=== PATIENT | male | born 1945 | race Caucasian/White ===

== ENCOUNTER → 2017-10-09 | Outpatient (CLI) | payer OTHER ==
--- NOTE | 2017-10-09 10:46 | DIAGNOSTIC IMAGING REPORT ---
L KNEE 4 OR MORE CLINICAL HISTORY: LEFT KNEE PAIN pain COMPARISON: None. DISCUSSION: Severe degenerative change all major joint compartments. This includes considerable degenerative and osteophytic change of all major compartments including patellofemoral joint. Potential underlying chondrocalcinosis. Less prominent degenerative change right knee. IMPRESSION: Severe degenerative change left knee all major compartments. The above report was generated using voice recognition software. It may contain grammatical, syntax or spelling errors. Electronically signed by: Nazario Jean M.D. 10/09/2017 10:45 AM Dictated Date/Time: 10/09/2017 10:44 AM
== END | disposition home or self-care (01) ==
LOC: C.RDSM 16:40
PROVIDERS: ATTEND Physician Assistant
DX: M25.562 Pain in left knee (principal); M89.8X6 Other specified disorders of bone, lower leg

== ENCOUNTER 2018-02-10 08:06 | Inpatient (IN) | payer OTHER ==
[2018-01-18 09:49] VITALS: Ht 182.9 cm; Wt 140.6 kg
--- NOTE | 2018-01-18 10:38 | PAT Medication Instructions ---
Service Date Jan 18, 2018. Current Home Medication List Aspirin (Aspirin), 1 TAB PO QPM Cholecalciferol (Vitamin D3), 1 CAP PO QPM Clonidine Hcl (Catapres), 0.6 MG PO QAM Clonidine Hcl (Catapres), 0.3 MG PO QPM Diltiazem Hcl Ext Rel (Tiazac), 360 MG PO QAM Doxazosin Mesylate (Cardura), 4 MG PO QPM Hydrocodone/Acetaminophen 7.5MG/325MG ([place] 7.5MG/325MG), 2 TABS PO QPM PRN for Pain Multivitamin (Multivitamin), 1 TAB PO QAM Oxymetazoline Hcl (Afrin), 1-2 SPRAYS INTNAS PRN Simvastatin (Zocor), 10 MG PO QPM [Lisinopril/Hctz], 2 TAB PO QAM Medication Instructions For Your Scheduled Surgery - Contact your surgeon for instructions for: Aspirin (Aspirin), 1 TAB PO QPM - Hold the following medications the morning of surgery: Multivitamin (Multivitamin), 1 TAB PO QAM [Lisinopril/Hctz], 2 TAB PO QAM - Take the following medications the morning of surgery with a sip of water: Clonidine Hcl (Catapres), 0.6 MG PO QAM Diltiazem Hcl Ext Rel (Tiazac), 360 MG PO QAM Hydrocodone/Acetaminophen 7.5MG/325MG ([place] 7.5MG/325MG), 2 TABS PO QPM PRN for Pain (if needed, cane be taken up to four hours before surgery) Oxymetazoline Hcl (Afrin), 1-2 SPRAYS INTNAS PRN (if needed) - Take the following medications as scheduled the night before surgery: Cholecalciferol (Vitamin D3), 1 CAP PO QPM Clonidine Hcl (Catapres), 0.3 MG PO QPM Doxazosin Mesylate (Cardura), 4 MG PO QPM Hydrocodone/Acetaminophen 7.5MG/325MG ([place] 7.5MG/325MG), 2 TABS PO QPM PRN for Pain (if needed) Oxymetazoline Hcl (Afrin), 1-2 SPRAYS INTNAS PRN (if needed) Simvastatin (Zocor), 10 MG PO QPM If you have any questions please call us at [phone] or [phone] or [phone]
[2018-01-18 10:56] LABS: PTT PATIENT 27.2 SECONDS (21.0-31.0)
[2018-01-18 10:58] LABS: BASO % 0.4 %; BASO ABS # 0.03 K/uL (0-0.2); CALCIUM 9.6 mg/dl (8.5-10.1); CREATININE 0.89 mg/dl (0.60-1.40); EOS % 5.2 %; EOS ABS # 0.39 K/uL (0-0.5); HEMATOCRIT 48.7 % (42-52); IG# 0.02 K/uL (0.00-0.02); LYMPH % 25.1 %; LYMPH ABS # 1.88 K/uL (1.2-3.4); MEAN CELL VOLUME 96.6 fL (80-100); MEAN CORPUSCULAR HEMOGLOBIN 31.7 pg (25-34); MEAN CORPUSCULAR HGB CONC 32.9 g/dl (32-36); MEAN PLATELET VOLUME 9.8 fL (7.4-10.4); MONO % 11.5 %; MONO ABS # 0.86 K/uL (0.11-0.59); NEUT % 57.5 %; NEUT ABS # 4.31 K/uL (1.4-6.5); PLATELET COUNT 214 K/uL (130-400); POTASSIUM 3.7 mmol/L (3.5-5.1); RED CELL DISTRIBUTION WIDTH SD 49.3 fL (36.4-46.3); WHITE BLOOD COUNT 7.49 K/uL (4.8-10.8)
--- NOTE | 2018-01-18 11:23 | DIAGNOSTIC IMAGING REPORT ---
CHEST 2 VIEWS ROUTINE CLINICAL HISTORY: PAT preoperative evaluation COMPARISON STUDY: No previous studies for comparison. FINDINGS: Masslike process medial aspect right base. This may represent pericardial cyst versus mass pathology. CT of chest is suggested as follow-up. Lungs otherwise are clear. Mild tortuosity thoracic aorta. Diaphragms smooth. IMPRESSION: 1. 6.5 cm mass versus pericardial cyst medial aspect right base. 2. CT of the chest is recommended to exclude the possibility of a neoplastic process. The above report was generated using voice recognition software. It may contain grammatical, syntax or spelling errors. Electronically signed by: Nazario Jean M.D. 01/18/2018 11:22 AM Dictated Date/Time: 01/18/2018 11:20 AM
--- NOTE | 2018-02-01 17:28 | HISTORY & PHYSICAL EXAMINATION ---
DATE OF ADMISSION: 02/10/2018 CHIEF COMPLAINT: Left knee pain. HISTORY OF PRESENT ILLNESS: This 72-year-old white male presents with his for evaluation of his left knee. He has a longstanding history of left knee pain. He injured himself several decades ago while playing flag football. He had an open meniscectomy done in 1974 on the medial aspect and a subsequent open meniscectomy done on the lateral side in 1975. He has had progressively worsening pain in the knee since then. No numbness or tingling. No catching or locking. No buckling. He does note loss of motion secondary to pain. His pain is affecting his ADLs. It is worse with weightbearing. He cannot do the things he would like secondary to knee pain. He has tried activity modification as well as oral anti-inflammatories and cortisone injections without lasting relief. Preoperative imaging has been obtained. He elects to proceed with left total knee arthroplasty in hopes of alleviating his discomfort. PAST MEDICAL HISTORY: Significant for hypertension, elevated cholesterol, osteoarthritis, decreased hearing, obesity, and BPH. PAST SURGICAL SURGERIES: Left knee has previous open medial and lateral meniscectomies, cataract surgery, and colonoscopies. ALLERGIES: NKDA. CURRENT MEDICATIONS: Aspirin 325 mg p.o. daily, clonidine 0.3 mg p.o. t.i.d., cyclobenzaprine 10 mg p.o. t.i.d., diltiazem 360 mg p.o. daily, doxazosin 4 mg p.o. daily, HCTZ/lisinopril 12.5 mg/10 mg p.o. daily, hydrocodone p.r.n., simvastatin 10 mg p.o. at bedtime, and vitamin D3 of 1000 international units p.o. daily. FAMILY HISTORY: Significant for cancer. Parents are . SOCIAL HISTORY: The patient is . Retired. Tobacco use of 2 cans of snuff per week. Occasional ETOH use. REVIEW OF SYSTEMS: Significant for above stated conditions, otherwise unremarkable. PHYSICAL EXAMINATION: GENERAL: Well-developed and well-nourished elderly white male in no acute distress. Sitting in a chair. Alert and oriented. Very large individual. SKIN: Warm and dry with good turgor. No rashes or lesions. No ecchymosis or erythema. HEENT: Normocephalic and atraumatic. Eyes, PERRLA and EOMI. Nares patent bilaterally without turbinate enlargement. Oropharynx is without erythema or exudate. No lesions noted. Uvula midline. Oral mucosa moist. Partial lower plate is noted. Poor dentition. HEART: RRR. No MGR. LUNGS: Clear to auscultation bilaterally. No crackles, rhonchi or wheezing. Good air movement. ABDOMEN: Obese. Bowel sounds present x4, soft and nontender. No organomegaly. No masses. MUSCULOSKELETAL: He has significant peripheral edema in both legs, left greater than right. Left knee evaluation reveals obvious arthritic changes. He has visible surgical scars present medially and laterally at the joint line. He has focal discomfort with palpation over the medial and lateral joint lines. Stable collateral ligaments. No defect in the patellar tendon or quadriceps tendon. He has full terminal extension. Flexion to only around 90 degrees secondary to pain and bony block. Crepitus is palpable with motion. Ambulatory with an antalgic gait. NEUROLOGIC: Gross sensation is intact across left leg by soft touch. He does have some subjective decreased peripheral sensation consistent with peripheral neuropathy. Peripheral pulses are 2+. DATA: Radiographic imaging previously obtained shows tricompartmental arthritis of the left knee with complete loss of the patellofemoral joint space. Periarticular osteophytes and subchondral sclerosis are also present. IMPRESSION: Left knee end-stage degenerative joint disease. PLAN: Postoperative prescriptions for Percocet and Coumadin will be provided at discharge from the hospital. He has already given written informed consent to proceed with left total knee arthroplasty. He will obtain medical clearance from his PCP. Preoperative lab work, EKG, and chest x-ray have been ordered. Anticipate discharge to home with home health services for 2 weeks and then outpatient PT. Prescription has been provided for a rolling walker.
[2018-02-10] VITALS (7 sets, daily range): BP systolic 133–175; BP diastolic 83–110; PULSE 62–80; TEMP 36.5–37.1; O2SAT 90–95
[~2018-02-10] VITALS: Ht 182.9 cm; Wt 140.6 kg
[~2018-02-10 08:06] MED LIST: ASPI325T45 PO; BUPIVACAINE 0.5 % 5 MG/1 ML PF 10ML VIAL ONE; CEFAZOLIN 3000MG IV PUSH 22.5 ML IV SCH; CHOL2000 PO; CLON0.3T PO; DILT-119 PO; DOXA4TAB2 PO; HYDR-3983 PO; LACTATED RINGER'S 1000ML 1,000 ML IV SCH; LACTATED RINGER'S 1000ML 500 ML IV SCH; LACTATED RINGER'S 1000ML IV SCH; LISINOPRIL/HCTZ PO; MULT-506 PO; OXYM0.056 INTNAS; ROPIVACAINE 0.5% 5 MG/ML 30 ML VIAL ONE; ROPIVACAINE 5MG/ML 30 ML 150 MG, BUPIVACAINE 0.5% MPF INJ 30 ML, EpINEphrine HCL INJ 0.... INFIL SCH; ROPIVACAINE 5MG/ML 30 ML 150 MG, BUPIVACAINE/EPINEPHR 0.5% MPF 30 ML, KETOROLAC TROMETH... INFIL SCH; SIMV10TA2 PO; TRANEXAMIC ACID INJ 1,000 MG x 2 Bags IV SCH
--- NOTE | 2018-02-10 08:20 | History & Physical Bridge Note ---
H&P Re-Evaluation Bridge Note: I have examined the patient, reviewed the History & Physical and in the interval since the performance of the History & Physical I have noted the following changes of clinical significance:consent obtained. No changes noted
[2018-02-10] MEDS ORDERED: PROPOFOL IV EMULSION 10 MG/ML 20 ML VIAL IV ONE (09:17)
[2018-02-10] MEDS ORDERED: LIDOCAINE HCL 2% 2 ML VIAL (20MG/ML) ONE (09:17)
[2018-02-10] MEDS ORDERED: FENTANYL CITRATE INJ 50 MCG/1 ML 2 ML VIAL ONE (09:18)
[2018-02-10] MEDS ORDERED: MIDAZOLAM HCL 1 MG/ML 2ML VIAL ONE (09:18)
[2018-02-10] MEDS ORDERED: POVIDONE-IODINE OP SOLN 30 ML BTL ONE (10:21)
[2018-02-10] MEDS ORDERED: ORTHO JOINT ANESTHETIC ONE (10:21)
[2018-02-10] MEDS ORDERED: LABETALOL HCL IV 5 MG/ML 20ML IV ONE ×5 (10:46→11:23)
[2018-02-10] MEDS ORDERED: MEPERIDINE HCL 25 MG/ML CARP IV PRN (11:00)
[2018-02-10] MEDS ORDERED: LABETALOL HCL IV 5 MG/ML 20ML IV PRN (11:00)
[2018-02-10] MEDS ORDERED: ONDANSETRON INJ 2 MG/ML 2 ML VIAL IV PRN ×2 (11:00→13:00)
[2018-02-10] MEDS ORDERED: HYDROmorphone INJ 0.5 MG/0.5 ML SYR IV PRN (11:00)
[2018-02-10] MEDS ORDERED: ATROPINE SULFATE 0.1 MG/ML 5ML SYR IV PRN (11:00)
[2018-02-10] MEDS ORDERED: EpHEDrine SULFATE INJ 50 MG/ML AMP IV PRN (11:00)
[2018-02-10] MEDS ORDERED: FENTANYL CITRATE INJ 50 MCG/1 ML 2 ML VIAL IV PRN (11:00)
--- NOTE | 2018-02-10 12:27 | [facility] Post Operative Brief Note ---
Immediate Operative Summary Operative Date Feb 10, 2018. Pre-Operative Diagnosis Left Knee End-Stage Degenerative Joint Disease Post-Operative Diagnosis Left Knee End-Stage Degenerative Joint Disease Procedure(s) Performed Left Total Knee Arthroplasty Surgeon Dr. Aleman Program Schedule Clerk Surgeon(s) Dr. Cameron Brown (Fellow)/ MABEL Solitario Estimated Blood Loss 200 ml Findings Consistent with Post-Op Diagnosis Fluids (cc crystalloids) 1000cc Specimens A. Left Knee Bone and Tissue Drains None Anesthesia Type MAC Spinal Regional Complication(s) none Disposition Accompanied Pt To Recover: no Disposition: Recovery Room / PACU
--- NOTE | 2018-02-10 12:47 | OPERATIVE REPORT ---
DATE OF OPERATION: 02/10/2018 SURGEON: Dr. Casarez. BONE WORKER: Stephanie. SECOND BONE WORKER: Nara. PREOPERATIVE DIAGNOSIS: Osteoarthritis with severe deformity and flexion contracture, left knee. POSTOPERATIVE DIAGNOSES: Same. In addition, morbid obesity. OPERATION PERFORMED: Cemented left total knee replacement. SUMMARY OF IMPLANTS: Size 5 posterior cruciate substituting femur, size 5 rotating tibial platform tray, size 5 insert x10 mm thick posterior cruciate substituting, oval domed 3 pegged patella size 41, 2 bags of Palacos G cement. PERIOPERATIVE SITUATION: Medically cleared male with intractable medical comorbidities including morbid obesity and venous stasis, who has been cleared for surgery. At this point in time, his leg looks quite good. He has end-stage disease and is severely painful. He has failed all conservative management. He recognized the risks including increased risk based on his comorbidities of size including infection and DVT. DESCRIPTION OF PROCEDURE: The patient was appropriately identified, site verified, consent verified, 3 grams of Ancef confirmed as being given. The left lower extremity was prepped and draped in usual routine fashion. Tourniquet was inflated to 350 mmHg after exsanguination of limb with a rubber Esmarch bandage for a total of approximately 70 minutes. Midline exposure was made. Parapatellar arthrotomy performed. A complete synovectomy completed. Marked osteophyte resection carried out. There was no ACL. The intercondylar notch was increased with an osteotome and the PCL identified, a central hole then made and the PCL sacrificed and distal femur then resected 14 mm. The tibia was then subluxated, tight area was released and the proximal tibia resected roughly 4 mm. That was sized to a 5. The extension gap was excellent. The cutting block was then applied and a 5 fit well, so the anterior, posterior condylar and chamfer cuts were made based on cutting block of 5. There was no notching. The chamfer cuts were made and the flexion gap checked. It was slightly tight laterally, lateral capsule released and it was excellently balanced. Two Orthomix injections were then placed posteriorly, particularly medially. Care taken to protect the neurovascular pedicle on the peroneal nerve. Wound was then irrigated. The box cut was then made and the size 5 trial fit well. The tibia was then subluxated anteriorly and broached and reamed for a size 5 tray. Trial reduction carried out with a 10 and the patella tracked well and there was no mid range stability and there was good extension. The patella was sized to 41, it was resected leaving about 15 mm patella. The trial holes were then seated. The trial was placed and tracked well. All trial implants were then removed. The wound was copiously irrigated with Betadine Pulsavac and the permanent cemented into position. After 12 minutes, the tourniquet deflated. After 14 minutes, the knee inspected and bleeding points controlled and excess cement removed. The wound was then irrigated. It should be mentioned that the impactor head split and was required to be changed. There was some plastic that was removed. No pieces were left and everything looked good. The wound was irrigated with Pulsavac, Betadine permanent, cemented into position. The knee reduced with the permanent liner, knee was stable in full extension, mid range flexion and full flexion of knee and the patella tracked well. The knee wound was then closed with #2 Ethibonds for the capsular layer, 2-0 Vicryl for subcutaneous layer and stainless steel clips for skin. A Ranjit Ruth cotton dressing was applied. He will keep his knee straight for 1 week prior to starting bending to control a soft tissue mass and to control his venous edema. Will keep him in the Ranjit Ruth cotton dressing. He will be weightbearing to tolerance on that. He will follow up in 1 week for dressing change and potential recompression dressing, depending on what his wound looks like and aleksey come out at roughly 2-1/2 weeks. DVT prophylaxis with Coumadin. ESTIMATED BLOOD LOSS: 200 mL . CRYSTALLOID: Crystalloid 1000 mL. SPECIMEN: Bone fragments sent for pathology. I attest to the content of the Intraoperative Record and any orders documented therein. Any exceptions are noted below. MTDD
[2018-02-10] MEDS ORDERED: MoRPHine SULFATE 2 MG/ML CARP IV PRN ×2 (13:00→14:30)
[2018-02-10] MEDS ORDERED: ALUMINUM/MAGNESIUM/SIMETH (MAALOX MAX) 30 ML UDC PO PRN (13:00)
[2018-02-10] MEDS ORDERED: TAMSULOSIN HCL 0.4 MG CAP PO PRN (13:00)
[2018-02-10] MEDS ORDERED: BISACODYL 10 MG SUPP PR PRN (13:00)
[2018-02-10] MEDS ORDERED: METOCLOPRAMIDE HCL INJ 5 MG/ML 2 ML VIAL IV PRN (13:00)
[2018-02-10] MEDS ORDERED: MAGNESIUM HYDROXIDE SUSP 30 ML UDC PO PRN (13:00)
--- NOTE | 2018-02-10 13:04 | DIAGNOSTIC IMAGING REPORT ---
L KNEE 2 VIEWS ROUTINE CLINICAL HISTORY: Degenerative arthritis COMPARISON: 10/09/2017 DISCUSSION: There are postsurgical changes of a total left knee arthroplasty and patellar resurfacing. The femoral and tibial components appear well seated. Overlying skin aleksey are visualized. Air within the soft tissues is felt to be postsurgical. IMPRESSION: Postsurgical changes of a total left knee arthroplasty. Electronically signed by: Daryn Driscoll M.D. 02/10/2018 1:02 PM Dictated Date/Time: 02/10/2018 1:02 PM
--- NOTE | 2018-02-10 13:29 | Anesthesiology Progress Note ---
Anesthesia Post Op Note Date & Time Feb 10, 2018 at 13:29 Vital Signs Pain Intensity: 0 Vital Signs Past 12 Hours Date Time Temp Pulse Resp B/P (MAP) Pulse Ox O2 Delivery O2 Flow Rate FiO2 02/10/18 13:18 67 14 02/10/18 13:18 65 14 96 02/10/18 13:16 133/78 02/10/18 13:13 63 24 02/10/18 13:13 63 24 94 02/10/18 13:11 136/91 02/10/18 13:08 64 25 02/10/18 13:08 36.5 94 Nasal Cannula 3 02/10/18 13:08 63 25 93 02/10/18 13:06 121/84 02/10/18 13:03 63 15 02/10/18 13:03 63 15 93 02/10/18 13:02 64 18 140/83 94 02/10/18 13:02 64 18 02/10/18 12:57 64 19 02/10/18 12:57 64 19 95 02/10/18 12:53 145/84 02/10/18 12:52 64 28 99 02/10/18 12:52 64 28 02/10/18 12:47 87 20 99 02/10/18 12:47 66 20 02/10/18 12:42 64 16 02/10/18 12:42 63 16 154/67 94 02/10/18 12:42 36.2 6 20 154/67 96 Oxymask 10 02/10/18 08:43 36.8 80 20 175/110 90 Room Air Notes Mental Status: alert / awake / arousable, participated in evaluation Pt Amnestic to Procedure: Yes Nausea / Vomiting: adequately controlled Pain: adequately controlled Airway Patency, RR, SpO2: stable & adequate BP & HR: stable & adequate Hydration State: stable & adequate Anesthetic Complications: no major complications apparent
[2018-02-10] MEDS ORDERED: MoRPHine SULFATE 4 MG/ML 1 ML CARP\\VIAL IV PRN (13:30)
--- NOTE | 2018-02-10 13:32 | PROGRESS NOTE ---
DATE: 02/10/2018 SUBJECTIVE: Postop check status post left total knee replacement. The patient is without any significant pain. He definitely has sleep apnea. This was discussed with him, he denies it. Discussed with his as well. At this point in time, will need to minimize his narcotics, use Tylenol and ketorolac. Minimal narcotic. OBJECTIVE: Vital signs are stable. He is afebrile. Neurovascular check lower extremity is normal. IMAGING Data: Postop x-rays look excellent. ASSESSMENT: Status post left total knee replacement, morbid obesity, sleep apnea, venous stasis. PLAN AND RECOMMENDATIONS: Due to all these conditions, will need to keep his wound compressed and still for a week. He is in a Ranjit Ruth cotton dressing and a knee immobilizer. He can be weightbearing to tolerance. Again, we will minimize his narcotic. Will need to return to the office in 1 week for dressing change and then ultimately either placement of another dressing or wound VAC, depending on the condition of the skin and his venous stasis. He understands this and understands this.
[2018-02-10] MEDS ORDERED: D5W AND 1/2NSS + 20MEQ KCL 1,000 ML IV SCH (14:00)
[2018-02-10] MEDS: KETOROLAC TROMETHAMINE 15 MG/ML VIAL IV. SCH ×2 (15:26→21:10)
[2018-02-10] MEDS: ACETAMINOPHEN 500 MG TAB PO SCH ×2 (15:26→21:12)
[2018-02-10] MEDS: OXYCODONE HCL IR 5 MG TAB (IMMEDIATE RELEASE) PO PRN ×3 (15:36→23:29)
[2018-02-10] MEDS ORDERED: WARFARIN SOD 5 MG TAB PO SCH (16:00)
[2018-02-10] MEDS: FERROUS GLUCONATE 324 MG TAB PO SCH (17:35)
[2018-02-10] MEDS ORDERED: NURSING VERBAL MED ORDER ONE (17:45)
[2018-02-10] MEDS: CEFAZOLIN IV 2,000 MG in SYRINGE 0 ML IV SCH (19:27)
[2018-02-10] MEDS ORDERED: CLONIDINE HCL 0.3 MG TAB PO SCH (21:00)
[2018-02-10] MEDS ORDERED: SIMVASTATIN 10 MG TAB PO SCH (21:00)
[2018-02-10] MEDS ORDERED: SENNA 8.6 MG TAB PO SCH (21:00)
[2018-02-10] MEDS ORDERED: DOXAZosin MESYLATE TAB 4 MG TAB PO SCH (21:00)
[2018-02-10] MEDS: DOCUSATE SODIUM 100 MG CAP PO SCH (21:11)
[2018-02-11] MEDS: KETOROLAC TROMETHAMINE 15 MG/ML VIAL IV. SCH ×2 (02:20→08:35)
[2018-02-11] MEDS: CEFAZOLIN IV 2,000 MG in SYRINGE 0 ML IV SCH (02:20)
[2018-02-11 03:14] VITALS: BP 149/88; PULSE 67; TEMP 36.7; O2SAT 94
[2018-02-11] MEDS: OXYCODONE HCL IR 5 MG TAB (IMMEDIATE RELEASE) PO PRN ×3 (03:36→11:20)
[2018-02-11] MEDS: ACETAMINOPHEN 500 MG TAB PO SCH (05:46)
[2018-02-11] MEDS ORDERED: DEXAMETHASONE INJ 10 MG in SYRINGE 0 ML IV ONE (07:30)
[2018-02-11 07:43] VITALS: BP 136/77; PULSE 74; TEMP 37; O2SAT 94
--- NOTE | 2018-02-11 07:57 | PROGRESS NOTE ---
DATE: 02/11/2018 Postop day #1 status post left total knee replacement. The patient is doing well, has no major issues. He denies any chest pain, shortness of breath, fever, chills, nausea, vomiting or headache. Vital signs are stable. He is afebrile. Neurovascular check, femoral sciatic nerve is normal. LABORATORY WORK: This morning reveals H&H is pending. Chemistry is pending. ASSESSMENT: Status post left total knee replacement. Plan is to discharge today after PT/OT. Keep present dressing in place for 1 week, follow up at that point in time, can be weightbearing as tolerated. No range of motion of the knee to protect the wound and help with venous stasis. Will follow up with me in 1 week. Coumadin per nomogram.
[2018-02-11 07:59] LABS: HEMATOCRIT 39.4 % (42-52); HEMOGLOBIN 12.9 g/dL (14.0-18.0); MEAN CELL VOLUME 97.8 fL (80-100); MEAN CORPUSCULAR HGB CONC 32.7 g/dl (32-36); MEAN PLATELET VOLUME 9.2 fL (7.4-10.4); PLATELET COUNT 169 K/uL (130-400); RED CELL DISTRIBUTION WIDTH CV 14.1 % (11.5-14.5); RED CELL DISTRIBUTION WIDTH SD 50.1 fL (36.4-46.3); WHITE BLOOD COUNT 10.14 K/uL (4.8-10.8)
--- NOTE | 2018-02-11 08:06 | DISCHARGE SUMMARY ---
CHIEF COMPLAINT: Left knee pain. HISTORY OF PRESENT ILLNESS: The patient is admitted for elective left total knee replacement for severe deformity, flexion contracture, varus alignment. He has tricompartmental end-stage disease. His hospital course has been uneventful. He has tolerated the procedure well. Due to his venous stasis and his overall size and his morbid obesity, we will treat with full weightbearing but the knee kept in extension for 1 week. He has a Ranjit Ruth cotton dressing on and that is not to be removed. PAST MEDICAL HISTORY: Remarkable for hypertension, elevated cholesterol, osteoarthritis, decreased hearing, obesity and BPH. I also think he has unrecognized sleep apnea and he was advised of this. He states he will be evaluated. PAST SURGICAL HISTORY: Remarkable for left knee multiple surgeries. ALLERGIES: None. PREADMISSION MEDICATIONS: Include aspirin 325 daily, clonidine 0.3 mg t.i.d., cyclobenzaprine 10 mg p.o. t.i.d., diltiazem 360 mg p.o. daily, doxazosin 4 mg p.o. daily, hydrochlorothiazide/lisinopril 12.5/10 daily, hydrocodone p.r.n., simvastatin 10 mg p.o. at bedtime, vitamin D. FAMILY HISTORY: Remarkable for cancer. Parents are . SOCIAL HISTORY: Reveals he is , retired. He uses 2 cans snuff per week. Occasional alcohol use. REVIEW OF SYSTEMS: Noncontributory. ASSESSMENT: He is doing well status post left total knee replacement. At this point in time we will discharge to home. We will keep his dressing on for 1 week. Follow up in 1 week for dressing change. At this point in time, waiting INR for potential Coumadin doses, but if he is less than 1.5 or less, discharge on 4 mg. If he is greater than 1.5, discharge on 2 mg. Check first INR on Thursday.
[2018-02-11 08:09] LABS: INR 1.1 (0.9-1.1)
[2018-02-11 08:30] LABS: CALCIUM 8.5 mg/dl (8.5-10.1); CREATININE 1.22 mg/dl (0.60-1.40); POTASSIUM 3.9 mmol/L (3.5-5.1)
[2018-02-11] MEDS: FERROUS GLUCONATE 324 MG TAB PO SCH (08:35)
[2018-02-11] MEDS: DOCUSATE SODIUM 100 MG CAP PO SCH (08:36)
--- NOTE | 2018-02-11 08:55 | Anesthesiology Progress Note ---
Anesthesia Post Op Note Date & Time Feb 11, 2018 at 08:54 Vital Signs Pain Intensity: 4.0 Vital Signs Past 12 Hours Date Time Temp Pulse Resp B/P (MAP) Pulse Ox O2 Delivery O2 Flow Rate FiO2 02/11/18 07:43 37.0 74 18 136/77 (96) 94 Nasal Cannula 3.0 02/11/18 03:14 36.7 67 16 149/88 (108) 94 Room Air 02/10/18 23:35 36.6 71 18 143/83 (103) 94 Nasal Cannula 3.5 02/10/18 23:30 Nasal Cannula 3.0 Notes Mental Status: alert / awake / arousable, participated in evaluation Pt Amnestic to Procedure: Yes Nausea / Vomiting: adequately controlled Pain: adequately controlled Airway Patency, RR, SpO2: stable & adequate BP & HR: stable & adequate Hydration State: stable & adequate Neuraxial Anesthesia: was administered, sensory block resolved Anesthetic Complications: no major complications apparent
[2018-02-11] MEDS ORDERED: LISINOPRIL/HCTZ 20/25MG TAB PO SCH (09:00)
[2018-02-11] MEDS ORDERED: CLONIDINE HCL 0.3 MG TAB PO SCH (09:00)
[2018-02-11] MEDS ORDERED: MULTIVITAMIN TAB PO SCH (09:00)
[2018-02-11] MEDS ORDERED: DILTIAZEM HCL (TIAzac) 180 MG CAPCR PO SCH (09:00)
[2018-02-11] MEDS ORDERED: PANTOprazole SOD 40 MG TAB PO SCH (09:00)
[2018-02-11] MEDS ORDERED: OXYC-57 PO (09:11)
[2018-02-11] MEDS ORDERED: WARF2TAB PO (09:11)
--- NOTE | 2018-02-11 09:16 | Discharge Instructions ---
Discharge Instructions Date of Service Feb 10, 2018. Admission Reason for Admission: Left Knee Degenerative Joint Disease Discharge Discharge Diagnosis / Problem: left knee s/p total knee replacement Discharge Goals Goal(s): Decrease discomfort, Improve function, Increase independence Activity Recommendations Activity Limitations: as noted below Lifting Limitations: gradually increase as tolerated Exercise/Sports Limitations: until after follow-up appointment Shower/Bathe: keep incision dry Driving or Machine Use: No driving until cleared by Dr. Aleman Weightbearing Status: Left weightbearing (as tolerated) . Instructions / Follow-Up Instructions / Follow-Up New Medicine: * You will likely be taking one or more of these medications: 1. Percocet - Take, as directed, when you need it, every four to six hours to control your pain. 2. Coumadin - Thins your blood to lessen the chance of forming a blood clot. The dose of this is different for each person and is based on your blood tests that are done twice a week. * The most common side effects of pain medicine and iron are nausea and constipation. If nausea or constipation is too much of a problem or if you have any questions about your new medicines or doses, call [facility] at . We will try to help you manage these issues. VERY IMPORTANT TO READ AND REVIEW" Blood Clots and Blood Thinning Medicine: * You are given Coumadin during the immediate post-operative period to lessen the risk of blood clots forming in your legs and/or lungs. Coumadin is usually given for six weeks after surgery. * The prescription is for 2 mg tablets. At discharge, you should understand your dose and take it all at the same time every day, preferably after dinner. * You need to get your blood checked 1 - 2 times per week for six weeks or as directed. * If your dose needs to change, we will call you. Do not take your medication on the day of the blood test until we call you. Pain: * The immediate post-operative period after knee replacement surgery is often quite painful. * You are given a prescription for pain medicine. You should take it, as directed, when you need it, especially before physical therapy and before going to bed. Pain that interferes with sleep is very common and can last several months. * You will likely need pain medicine for the first four to six weeks. It will not stop all of the pain. The pain will lessen and as you feel better, you may change to milder pain medicine such as Tylenol. * The most common side effects of pain medicine are nausea and constipation, so don't take more than you need. Physical Therapy: * You will have physical therapy two or three times each week for four to six weeks after your surgery in order to regain your knee range of motion and to retrain your knee to work properly. * It is just as important to make sure you are getting your knee perfectly straight as it is to regain your knee bend. * Taking a pain pill an hour before therapy can help you have a more productive and comfortable therapy session if needed. Home Exercise: * You were shown a series of exercises (heel props, heel slides, etc.) in the hospital. Do these exercises three to four times each day including the exercises you were shown in physical therapy. Walking: * Get up and walk several times each day. For the first four weeks, try not to stand or walk for more than one hour at a time. If you do stand or walk for more than one hour, you will not hurt anything, but your knee and leg will likely swell. * As you feel comfortable, you may change from the walker or crutches to a cane and then to independent walking. SELF CARE INSTRUCTIONS AFTER TOTAL KNEE REPLACEMENT A. You may need to continue a physical therapy program after discharge from the hospital. There are several options available to you. Your doctor will assist you in selecting the best one for you. 1. An out-patient facility 2 to 3 times a week for therapy or home therapy. 2. Continue working on all exercises taught to you in the hospital. Your goals should be to increase bending of your knee to 90 degrees and beyond and to fully straighten your knee. B. You may progress at your own pace from walking with a walker or crutches to a cane; then to no assistive devices. C. Make walking a part of your daily routine. Be up as much as comfortable with rest periods throughout the day. Rest with leg elevation is very important. Use the ice wrap frequently for the first 3-4 weeks. D. There are no restrictions on activities. You may ride in a car, shop, participate in nurse discharge planner and all social activities. E. Wear the long elastic stockings (MEL hose) 20 hours a day for six weeks after surgery. They can be removed several times a day for laundering and for a shower. F. Do not place a pillow behind your knee when resting. A pillow at your ankle is okay. VERY IMPORTANT TO READ AND REVIEW A. Take Coumadin, Aspirin or Lovenox (blood thinning medications) as directed by your doctor. If on Coumadin, have a pro-time (blood test) drawn according to your doctor's instructions. This will tell the doctor how well the Coumadin is thinning your blood. 1. YOU WILL BE GIVEN AN ORDER AT DISCHARGE FOR PT/INR (BLOOD WORK). PLEASE HAVE THIS DONE INSTRUCTED. PLEASE CALL OUR OFFICE AFTER YOUR BLOODWORK IS COMPLETE SO WE CAN TRACK YOUR RESULTS. IF YOU ARE GOING TO OUTPATIENT PHYSICAL THERAPY, YOU WILL NEED TO GO TO OUTPATIENT TESTING TO HAVE IT DRAWN. B. There are a few signs you need to watch for after you are home. Call [facility] if you notice any of the followin. Increased severe knee pain. Some pain is expected especially when you exercise. 2. Increased swelling in your leg or knee; pain or swelling of the calf muscle in either lower leg. 3. Any fluid drainage from the incision. 4. Shortness of breath or chest pain. C. Please call [facility] at if you have any concerns or questions about your operation or recovery. The doctor or his nurse will return your call promptly. D. You must take antibiotics before dental work, bladder, bowel or other surgery. Call the office to obtain a prescription at least 2 days prior to your appointment. * CALL IF INCREASED PAIN, REDNESS, DRAINAGE OR FEVER GREATER THAT 101. * Sutures should be removed 12-14 days after surgery unless you are on chronic steriods, then it will be 14-18 days after surgery. Call your doctor if: * Temperature above 101 degrees F. * Pain not relieved by pain medicine ordered. * Increased drainage or redness from incision. * Notify your doctor with any questions or concerns. Current Hospital Diet Patient's current hospital diet: AHA Diet (Heart Healthy) Discharge Diet Recommended Diet: AHA Diet (Heart Healthy) Procedures Procedures Performed: Left Total Knee Arthroplasty Pending Studies Studies pending at discharge: no Medical Emergencies . Who to Call and When: Medical Emergencies: If at any time you feel your situation is an emergency, please call [phone] immediately. . Non-Emergent Contact Non-Emergency issues call your: Primary Care Provider, Surgeon Call Non-Emergent contact if: temperature is above 101, wound has increased drainage, wound has increased redness, wound has increased pain, you have any medication questions . "Provider Documentation" section prepared by Kadeem Bains PA-C. . [place] Drug Monitoring Program Search Results: no issues identified
--- NOTE | 2018-02-11 09:26 | Orthopedic Progress Note ---
Orthopedic Progress Note Date of Service Feb 11, 2018. Subjective Post OP Day: 1 Reports: feeling well, Denies: complaints, chest pain, SOB, nausea / vomiting, light headedness, calf pain Additional Notes: States he feels ready to go home. Slept fairly well. Objective calves soft nontender, N/V intact, capillary refill less than 2 sec., dressing C /D/I, A&O x3, toes mobile, CMS intact Knee immobilizer in place. No dressings removed. Date Time Temp Pulse Resp B/P (MAP) Pulse Ox O2 Delivery O2 Flow Rate FiO2 02/11/18 07:43 37.0 74 18 136/77 (96) 94 Nasal Cannula 3.0 02/11/18 03:14 36.7 67 16 149/88 (108) 94 Room Air 02/10/18 23:35 36.6 71 18 143/83 (103) 94 Nasal Cannula 3.5 02/10/18 23:30 Nasal Cannula 3.0 02/10/18 15:20 37.1 70 16 133/83 (100) 95 Nasal Cannula 3.0 02/10/18 14:35 36.5 66 22 151/95 (113) 95 Nasal Cannula 3.0 02/10/18 14:10 62 18 149/89 (109) 95 02/10/18 14:00 36.6 65 19 136/85 (102) 94 Nasal Cannula 3.0 02/10/18 13:30 Nasal Cannula 3.0 02/10/18 13:30 Nasal Cannula 3.0 02/10/18 13:30 36.6 64 16 159/96 (117) 93 Nasal Cannula 3.0 02/10/18 13:18 67 14 02/10/18 13:18 65 14 96 02/10/18 13:16 133/78 02/10/18 13:13 63 24 02/10/18 13:13 63 24 94 02/10/18 13:11 136/91 02/10/18 13:08 64 25 02/10/18 13:08 36.5 94 Nasal Cannula 3 02/10/18 13:08 63 25 93 02/10/18 13:06 121/84 02/10/18 13:03 63 15 02/10/18 13:03 63 15 93 02/10/18 13:02 64 18 140/83 94 02/10/18 13:02 64 18 02/10/18 12:57 64 19 02/10/18 12:57 64 19 95 02/10/18 12:53 145/84 02/10/18 12:52 64 28 99 02/10/18 12:52 64 28 02/10/18 12:47 87 20 99 02/10/18 12:47 66 20 02/10/18 12:42 64 16 02/10/18 12:42 63 16 154/67 94 02/10/18 12:42 36.2 6 20 154/67 96 Oxymask 10 Laboratory Results 24 Hours: Test 02/11/18 07:46 Hematocrit 39.4 % Hemoglobin 12.9 g/dL Prothromb Time International Ratio 1.1 Prothrombin Time 11.6 SECONDS Assessment & Plan Assessment: Left knee post op day 1 total knee arthroplasty Plan: PT/OT today coumadin per nomogram D/C to home today with home nursing WBAT, using the walker f/u in the office in 1 week for dressing removal. Discharge Planning Discharge Planning: home with home health Pain Management: Percocet DVT Prophylaxis: TEDs, SCDs, Coumadin
--- NOTE | 2018-02-11 10:06 | [facility] Operative Report ---
Operative Report Operative Date Feb 10, 2018. Pre-Operative Diagnosis Left Knee End-Stage Degenerative Joint Disease Post-Operative Diagnosis Left Knee End-Stage Degenerative Joint Disease Procedure(s) Performed Left Total Knee Arthroplasty Surgeon Dr. Aleman Polisher Dial Surgeon(s) Dr. Cameron Brown (Fellow)/ MABEL Solitario Estimated Blood Loss 200 ml Findings Left knee DJD Fluids 1000cc Specimens A. Left Knee Bone and Tissue Drains None Anesthesia Type MAC Spinal Regional Complication(s) none Disposition no Recovery Room / PACU Indications This 72-year-old white male presented to the office with complaints of intractable left knee pain. He had tried conservative care measures including activity modification, injection therapy, and oral pain medications without lasting relief. He elected to proceed with surgical intervention after being educated about potential risks and outcomes. Preoperative imaging was obtained. Description of Procedure Patient was administered a spinal anesthetic and then taken to the operating room where he was given sedation. He was prepped and draped in usual sterile fashion. Please see Dr. Aleman's operative report for specifics of the procedure. I was present for the entire case from initial patient positioning through final wound closure. Assistance was provided in tissue retraction, hemostasis, trial implant placement, final implant placement, and final wound closure. Patient was taken to the recovery room in satisfactory condition. I attest to the content of the Intraoperative Record and any orders documented therein. Any exceptions are noted below.
[2018-02-11 10:11] VITALS: BP 136/77; PULSE 74; TEMP 37; O2SAT 94
== END 2018-02-11 11:30 | disposition home health service (06) | DRG 470 ==
LOC: C.ACU 08:06 → C.3E 08:25 → ENRESERV 13:02
PROVIDERS: ADMIT Physical Medicine & Rehabilitation Sports Medicine; ATTEND Physical Medicine & Rehabilitation Sports Medicine
PROC: 0SRD0J9 Replacement of Left Knee Joint with Synthetic Substitute, Cemented, Open Approach (ICD-10-PCS; principal; 2018-02-10 11:00)
DX: M17.12 Unilateral primary osteoarthritis, left knee (principal); Z68.41 Body mass index [BMI] 40.0-44.9, adult; M24.562 Contracture, left knee; I87.8 Other specified disorders of veins; G47.30 Sleep apnea, unspecified; E78.00 Pure hypercholesterolemia, unspecified; I10 Essential (primary) hypertension; H91.90 Unspecified hearing loss, unspecified ear; E66.01 Morbid (severe) obesity due to excess calories; F17.220 Nicotine dependence, chewing tobacco, uncomplicated; Z51.81 Encounter for therapeutic drug level monitoring; Z79.899 Other long term (current) drug therapy; Z79.82 Long term (current) use of aspirin

== ENCOUNTER → 2018-03-30 | Outpatient (CLI) | payer OTHER ==
[~2018-03-30] MED LIST changes: -ASPI325T45 PO; -BUPIVACAINE 0.5 % 5 MG/1 ML PF 10ML VIAL ONE; -CEFAZOLIN 3000MG IV PUSH 22.5 ML IV SCH; -HYDR-3983 PO; -LACTATED RINGER'S 1000ML 1,000 ML IV SCH; -LACTATED RINGER'S 1000ML 500 ML IV SCH; -LACTATED RINGER'S 1000ML IV SCH; +OXYC-57 PO; -ROPIVACAINE 0.5% 5 MG/ML 30 ML VIAL ONE; -ROPIVACAINE 5MG/ML 30 ML 150 MG, BUPIVACAINE 0.5% MPF INJ 30 ML, EpINEphrine HCL INJ 0.... INFIL SCH; -ROPIVACAINE 5MG/ML 30 ML 150 MG, BUPIVACAINE/EPINEPHR 0.5% MPF 30 ML, KETOROLAC TROMETH... INFIL SCH; -TRANEXAMIC ACID INJ 1,000 MG x 2 Bags IV SCH; +WARF2TAB PO
== END | disposition home or self-care (01) ==
LOC: C.RDSM 08:25
PROVIDERS: ATTEND Physical Medicine & Rehabilitation Sports Medicine
DX: Z96.652 Presence of left artificial knee joint (principal); Z79.01 Long term (current) use of anticoagulants